=== PATIENT | female | born 1965 | race American Indian/Alaskan Native ===

== ENCOUNTER 2018-06-21 10:34 | Outpatient (CLI) | payer BC ==
--- NOTE | 2018-06-22 11:30 | Mammography Report ---
BILATERAL DIGITAL SCREENING MAMMOGRAM with CAD: 06/21/18 10:34:00 CLINICAL: Routine screening. COMPARISON:12/22/16 FINDINGS: The breasts are mostly fatty. A left upper inner parenchymal asymmetry is unchanged compared to exams going back to 12/26/13. However, an oval circumscribed left lower outer mass has enlarged and is more dense compared to previous exams.No architectural distortion or suspicious calcifications.The right breast is negative. IMPRESSION: Left breast mass requiring further workup. BI-RADS CATEGORY: 0 -- Additional Imaging Evaluation Required RECOMMENDATION: Recall for targeted left breast ultrasound to evaluate the lower outer mass which has been previously biopsied. ACR BI-RADS MAMMOGRAPHIC CODES: 0 = Needs additional imaging evaluation; 1 = Negative; 2 = Benign; 3 = Probably benign; 4 = Suspicious; 5 = Malignant; 6 = Known biopsy-proven malignancy COMMENT: 1. Dense breast tissue, i.e., adenosis, fibrocystic changes, etc., may obscure an underlying neoplasm. 2. Approximately 10% of cancers are not detected with mammography. 3. A negative mammography report should not delay biopsy if a clinically suspicious mass is present. COMMENT: Patient follow-up letters are generated via our [employer] application.
== END 2018-06-21 10:35 | disposition home or self-care (01) ==
LOC: SPVWC 10:34
PROVIDERS: ATTEND Obstetrics & Gynecology
DX: Z12.31 Encounter for screening mammogram for malignant neoplasm of breast (principal)
CPT/HCPCS: 77067